=== PATIENT | female | born 1980 | race Caucasian/White ===

== ENCOUNTER 2022-04-13 20:54 | Inpatient (IN) | payer OTHER, SELFPAY ==
[2022-04-13] VITALS (17 sets, daily range): BP systolic 109–143; BP diastolic 67–92; PULSE 67–206; TEMP 37.1
[2022-04-13] MEDS: OXYTOCIN 30 UNITS/NS 500 ML 30 UNITS/500 ML BAG 999 UNITS IV CONT (21:50)
--- NOTE | 2022-04-13 22:01 | PM.IMHP ---
H&P: HPI History of Present Illness Date/Time: 04/13/22 22:01 Chief Complaint: delivered at home Narrative: Nadiya is a 41yo who delivered at home. She just found out she was a month ago, didn't realize she was in labor. Placenta still in upon my arrival. Has history of meth use. Denies drug use this but had no care. delivered her last baby a year ago with another practice, last saw Dr Rowley in 2019. Is avoidant with her history giving. Unclear who has custody of her three other minor children. her of a [place] one year ago. Review of Systems Review of Systems: All systems reviewed & are unremarkable except as noted in HPI and below Meds Home Medications and Allergies Allergies Allergy/AdvReac Type Severity Reaction Status Date / Time No Known Allergies Allergy Verified 11/11/18 14:18 Vital Signs Vital Signs - 24 hr 04/13/22 21:41 04/13/22 21:45 04/13/22 21:51 Pulse Rate 106 H 101 H 116 H Blood Pressure 111/67 132/84 109/78 04/13/22 21:56 Pulse Rate 71 Blood Pressure 128/77 Exam Const: General: no acute distress Resp: Effort & Inspection: normal respiratory effort Auscultation: clear to auscultation bilaterally Cardio: Rate: regular rate Rhythm: regular rhythm GI: GI Palp: Yes Soft to palpation Extrem: General: normal to inspection Assessment and Plan Assessment and plan (1) , delivered: Code(s): O80 - Encounter for full-term uncomplicated delivery Status: Acute Plan home delivery placenta out- path and culture UDS labs SW consult baby doing well stat CBC
--- NOTE | 2022-04-13 22:05 | P.PCNOB_ITS ---
OB - Delivery Note Procedure Delivery date: 04/13/22 Procedure: delivery of placenta Events: No Care and Other (delivery outside of hospital) Route of delivery: Laceration Description: None Specimen: Yes Quantitative Blood Loss (ml): 500 (since arrival at hospital) Anesthesia type: None Disposition: Floor Complications: retained placenta >30min by time I arrived, but delivered within 10 min with traction and pitocin [place] [facility] Date of : 04/13/22 Weeks of gestation at delivery: 38 (estimated based on baby.) Infant gender: Female Weight (pounds): 6 Weight (ounces): 3 presentation: vertex Placenta delivery description: Spontaneous Cord Vessel Description: 3 Vessels Narrative: Delivered out of the hospital. I arrived and placenta retained. With gentle traction and pitocin, it delivered intact. No lacerations. Uncertain of details of delivery of the baby.
[2022-04-13 22:17] LABS: Basophils Absolute Auto 0.1 K/mm3 (0.0-0.1); Basophils Percent Auto 0.5 % (0.2-1.2); Eosinophils Absolute Auto 0.1 K/mm3 (0-0.3); Eosinophils Percent Auto 0.4 % (0-4.4); Hematocrit 30.1 % (37.0-47.0); Hemoglobin 9.7 g/dL (12.0-15.0); Immature Granulocyte Absolute 0.13 K/mm3 (0.00-0.031); Lymphocytes Absolute Auto 2.01 K/mm3 (0.9-3.2); Lymphocytes Percent Auto 14.8 % (18.3-44.2); Mean Corpuscular HGB Conc 32.2 g/dl (32-36); Mean Corpuscular Hemoglobin 26.8 pg (26-34); Mean Corpuscular Volume 83.1 fl (80-100); Mean Platelet Volume 9.4 fl (7.4-10.4); Monocytes Absolute Auto 0.8 K/mm3 (0.1-0.6); Monocytes Percent Auto 5.8 % (2.6-8.5); Neutrophils Absolute Auto 10.5 K/mm3 (1.3-6.7); Neutrophils Percent Auto 77.5 % (45.5-73.1); Platelet Count Result 365 k/mm3 (150-375); Red Blood Count 3.62 M/mm3 (4.2-5.4); Red Cell Distribution Width 13.8 % (11.5-14.5); White Blood Count 13.6 K/mm3 (4.5-10.0)
[2022-04-13] MEDS: OXYTOCIN 30 UNITS/NS 500 ML 30 UNITS/500 ML BAG 125 UNITS IV CONT (22:28)
[2022-04-13 22:43] LABS: Benzodiazepines Screen Urine Positive (Negative)
[2022-04-13 22:50] LABS: Cannabinoid Screen Urine Negative (Negative); Cocaine Screen Urine Negative (Negative); Methadone Screen Urine Negative (Negative); Opiate Screen Urine Negative (Negative); Phencyclidine Screen Urine Negative (Negative)
[2022-04-13 23:01] LABS: HIV 1/2 Ab P24 Ag Result Negative (Negative)
[2022-04-13 23:31] LABS: Hepatitis B Surface Antigen Negative (Negative); Rubella IgG Antibody 21.9 IU/ML
[2022-04-14] VITALS (35 sets, daily range): BP systolic 106–138; BP diastolic 70–90; PULSE 71–136; RESP 16–18; TEMP 36.2–37.2; O2SAT 97–100
--- NOTE | 2022-04-14 00:22 | LDADM ---
This patient, Nadiya Grove, was admitted to Labor/Delivery/Recovery 104 on 04/13/22 at 20:54. Plans for labor, pain management and were discussed with patient. Patient/family oriented to hospital policies and general routines including ID bracelet, bed and alarms, visiting hours, pain management, procedures, bathroom and other care routines, personal items, smoking policy, room service/diet and guest tray routines, infant security routines, and visiting hours. Patient/Family are encouraged to report perceived risks to care and to ask questions if they do not understand what they are told or what they should do. See OBIX for further documentation.
[2022-04-14 00:48] LABS: Amphetamine Screen Urine Positive (Negative)
[2022-04-14] MEDS: IBUPROFEN 600 MG TABLET PO ×2 (01:02→10:59)
--- NOTE | 2022-04-14 04:13 | ADMGEN ---
This patient, Nadiya Grove, was admitted to OB 2nd Floor Room 289-00. Patient/family oriented to hospital policies and general routines including ID bracelet, bed and alarms, visiting hours, pain management, procedures, bathroom and other care routines, personal items, smoking policy, room service/diet, and visiting hours. Information on how to activate the Rapid Response Team has been discussed. Patient/Family are encouraged to report perceived risks to care and to ask questions if they do not understand what they are told or what they should do.
[2022-04-14 05:53] LABS: Hematocrit 22.5 % (37.0-47.0); Hemoglobin 7.2 g/dL (12.0-15.0)
--- NOTE | 2022-04-14 07:25 | PM.OBPNVD ---
OB - PN: Subj Subjective Date/time seen: 04/14/22 07:25 Patient comments: no complaints and pain well controlled baby status: doing well and bottle feeding well Narrative: just tired. Hgb 7, unsure where she started, was 9 immediately after delivery. Hasn't been up much yet. UDS was pos for benzos and amphetamines. OB - PN: Obj Data Labs CBC & Chem 7: 04/14/22 04:55 Labs: Laboratory Results - last 24 hr 04/13/22 04/13/22 04/13/22 22:05 22:05 22:05 WBC 13.6 H RBC 3.62 L Hgb 9.7 L Hct 30.1 L MCV 83.1 MCH 26.8 MCHC 32.2 RDW 13.8 Plt Count 365 MPV 9.4 Immature Gran % (Auto) 1.0 H Neut % (Auto) 77.5 H Lymph % (Auto) 14.8 L [place] % (Auto) 5.8 Eos % (Auto) 0.4 Baso % (Auto) 0.5 Lymph # (Auto) 2.01 [place] # (Auto) 0.8 H Eos # (Auto) 0.1 Baso # (Auto) 0.1 Abs Immat Gran (auto) 0.13 H Absolute Neuts (auto) 10.5 H Absolute Nucleated RBC 0.0 Nucleated RBC % 0.0 Urine Opiates Screen Urine Methadone Screen Ur Barbiturates Screen Ur Phencyclidine Scrn Ur Amphetamine Screen U Benzodiazepines Scrn Urine Cocaine Screen U Cannabinoids Screen Hep Bs Antigen Negative HIV 1&2 Ab/P24 Ag 4thGn Negative Rubella IgG Antibody 21.9 Blood Type Antibody Screen 04/13/22 04/13/22 04/14/22 22:05 22:05 04:55 WBC RBC Hgb 7.2 L Hct 22.5 L MCV MCH MCHC RDW Plt Count MPV Immature Gran % (Auto) Neut % (Auto) Lymph % (Auto) [place] % (Auto) Eos % (Auto) Baso % (Auto) Lymph # (Auto) [place] # (Auto) Eos # (Auto) Baso # (Auto) Abs Immat Gran (auto) Absolute Neuts (auto) Absolute Nucleated RBC Nucleated RBC % Urine Opiates Screen Negative Urine Methadone Screen Negative Ur Barbiturates Screen Ur Phencyclidine Scrn Negative Ur Amphetamine Screen Positive A U Benzodiazepines Scrn Positive A Urine Cocaine Screen Negative U Cannabinoids Screen Negative Hep Bs Antigen HIV 1&2 Ab/P24 Ag 4thGn Rubella IgG Antibody Blood Type O Positive Antibody Screen Negative OB - PN A/P Plan day: 1 Plan: routine care Comments: SW to see today IV iron, may need transfusion, discussed RBA blood transfusion. will see how sx are today. Time Spent With Patient Time: Total time spent is greater than 50% in coordination of care (as documented) at patient's floor/unit and/or counseling patient: Time with patient: less than 15 minutes Exam Narrative: NAD abdomen soft, nontender, fundus firm below the umbilicus Extremities nontender, 1+ edema
[2022-04-14] MEDS: POLYSACCHARIDE IRON COMPLEX 150 MG CAPSULE PO ×2 (10:59→15:51)
[2022-04-14 15:31] LABS: Rapid Plasma Reagin Non-Reactive (NonReactive)
--- NOTE | 2022-04-14 16:04 | PCCCNOTE ---
Addendum entered by HENRY Palmer 04/16/22 13:21: Baby Girl Jennifer is ready for discharge per RN. Call to DCFS worker Arelis to inform of discharge. Per Arelis she will be at the hospital this afternoon at 1pm with the foster parents. She will bring a car seat. RN aware that foster parents are requesting not to see mom, they will complete paperwork on the first floor. Arelis requests umbilical cord results to be faxed once available to her fax number listed below. Addendum entered by HENRY Palmer 04/15/22 09:17: Received call from Arelis with [employer] out of the [place] DCFS office. , . Arelis will be here at the hospital to meet with pt. this morning. Per Arelis pt. recently has had her parental rights severed as to her 5 year old and 1 year old for substance abuse. Arelis reports that DCFS will be taking custody of baby girl and Arelis is working on finding placement for child this morning. RN notified. Original Note: Care Coordination Consult: Met with pt. today. This is her fifth child. She has three other children under the age of 18. One child over the age of 18. Pt. reports she was not aware that she was until about one month ago, did not seek any care. Was not aware that she was in labor prior to admission, reason as to why she gave at home. Pt. states that she has some belongings at home for baby girl from her previous children, her mother Katherine is her biggest support and is working on a car seat and other bigger items for pt. and baby to use at home. Pt. reports she lives at home alone. Her children mostly live with their fathers. Pt. now aware she tested positive for Benzodiazepines and Amphetamines upon admission to the hospital, baby tested positive for Benzodiazepines. When asked mother reports she takes Xanax and can confirm prescription. Pt. confirms she has used Methamphetamines during this , last used a couple of days ago. Pt. reports she has used Metamphetamines off and off for a while. Pt. denies any other substance use. When asked pt. has had a history of DCFS in the past, denies a current open case. Provided and substance abuse resources. Pt. reports she has sough treatment through [facility] in [place], [place] before and felt she benefited from their outpatient services before. Pt. aware that DCFS will be contacted to determine if they will come speak with pt. A basket was provided to assist pt. in supplies for home. Completed online DCFS report #[id number], received confirmation that DCFS will take a report and will come to speak with mother regarding the issues above.
[2022-04-15 07:55] VITALS: BP 113/70; PULSE 95; RESP 16; TEMP 37.1; O2SAT 99
--- NOTE | 2022-04-15 08:32 | PM.OBPNVD ---
OB - PN: Subj Subjective Date/time seen: 04/15/22 08:32 Patient comments: no complaints, pain well controlled and tolerating diet OB - PN: Obj Data Labs CBC & Chem 7: 04/14/22 04:55 Labs: Laboratory Results - last 24 hr 04/13/22 22:05 RPR Non-reactive OB - PN A/P Plan day: 2 Plan: routine care Comments: continue observation for severe anemia Time Spent With Patient Time: Total time spent is greater than 50% in coordination of care (as documented) at patient's floor/unit and/or counseling patient: Exam Const: General: comfortable and no acute distress Resp: Effort & Inspection: normal respiratory effort Auscultation: no rales, no rhonchi and no wheezes Cardio: Rate: regular rate Heart sounds: no click, no murmurs and no rubs GI: GI Palp: Yes Soft to palpation and No Tenderness to palpation present (GI) Auscultation: normal bowel sounds Extrem: General: normal to inspection, no pedal edema and no calf tenderness
--- NOTE | 2022-04-15 10:30 | PC.NURSE ---
Mely from DCFS here to see pt.
[2022-04-15] MEDS: POLYSACCHARIDE IRON COMPLEX 150 MG CAPSULE PO ×2 (13:03→16:59)
[2022-04-15] MEDS: DOCUSATE SODIUM 100 MG CAPSULE PO ×2 (13:03→16:59)
[2022-04-15] MEDS: IBUPROFEN 600 MG TABLET PO (16:59)
[2022-04-15 19:51] VITALS: BP 113/71; PULSE 125; RESP 18; TEMP 37.1
[2022-04-16] VITALS (8 sets, daily range): BP systolic 105–128; BP diastolic 65–83; PULSE 104–113; RESP 16–22; TEMP 36.7–37.3; O2SAT 97–100
[2022-04-16 06:23] LABS: Basophils Absolute Auto 0.1 K/mm3 (0.0-0.1); Basophils Percent Auto 0.6 % (0.2-1.2); Eosinophils Absolute Auto 0.1 K/mm3 (0-0.3); Immature Granulocyte Absolute 0.41 K/mm3 (0.00-0.031); Immature Granulocyte Percent A 3.6 % (0-0.5); Lymphocytes Absolute Auto 3.31 K/mm3 (0.9-3.2); Lymphocytes Percent Auto 28.8 % (18.3-44.2); Mean Corpuscular HGB Conc 32.3 g/dl (32-36); Mean Corpuscular Hemoglobin 26.9 pg (26-34); Mean Corpuscular Volume 83.4 fl (80-100); Mean Platelet Volume 9.4 fl (7.4-10.4); Monocytes Absolute Auto 0.7 K/mm3 (0.1-0.6); Monocytes Percent Auto 6.4 % (2.6-8.5); Neutrophils Absolute Auto 6.9 K/mm3 (1.3-6.7); Neutrophils Percent Auto 59.6 % (45.5-73.1); Nucleated Red Blood Cells Absolute Auto 0.1 K/mm3 (0.0-0.012); Nucleated Red Blood Cells Perc 0.4 % (0.0-0.2); Platelet Count Result 326 k/mm3 (150-375); Red Blood Count 2.23 M/mm3 (4.2-5.4); Red Cell Distribution Width 14.2 % (11.5-14.5); White Blood Count 11.5 K/mm3 (4.5-10.0)
[2022-04-16 06:36] LABS: Hematocrit 18.6 % (37.0-47.0)
--- NOTE | 2022-04-16 08:02 | PM.OBPNVD ---
OB - PN: Subj Subjective Date/time seen: 04/16/22 08:02 Patient comments: pain well controlled Narrative: exhausted. Hgb 6.0. Denies sx other than fatigue. Baby to be taken into custody. OB - PN: Obj Data Labs CBC & Chem 7: 04/16/22 04:58 Labs: Laboratory Results - last 24 hr 04/13/22 04/16/22 22:05 04:58 WBC 11.5 H RBC 2.23 L Hgb 6.0 L* Hct 18.6 L* MCV 83.4 MCH 26.9 MCHC 32.3 RDW 14.2 Plt Count 326 MPV 9.4 Immature Gran % (Auto) 3.6 H Neut % (Auto) 59.6 Lymph % (Auto) 28.8 [place] % (Auto) 6.4 Eos % (Auto) 1.0 Baso % (Auto) 0.6 Lymph # (Auto) 3.31 H [place] # (Auto) 0.7 H Eos # (Auto) 0.1 Baso # (Auto) 0.1 Abs Immat Gran (auto) 0.41 H Absolute Neuts (auto) 6.9 H Absolute Nucleated RBC 0.1 H Nucleated RBC % 0.4 H Blood Type O Positive Antibody Screen Negative Crossmatch See Detail OB - PN A/P Plan day: 3 Plan: routine care Comments: 2 units pRBCs possible DC after blood encouraged PP follow up for BC especially. Time Spent With Patient Time: Total time spent is greater than 50% in coordination of care (as documented) at patient's floor/unit and/or counseling patient: Time with patient: less than 15 minutes Exam Narrative: NAD abdomen soft, nontender, fundus firm below the umbilicus Extremities nontender, 1+ edema
[2022-04-16] MEDS: POLYSACCHARIDE IRON COMPLEX 150 MG CAPSULE PO (08:43)
[2022-04-16 16:51] LABS: Hemoglobin 8.4 g/dL (12.0-15.0)
[2022-04-19 09:55] VITALS: BP 139/83; PULSE 115; RESP 20; TEMP 36.7; O2SAT 99
--- NOTE | 2022-05-09 12:43 | P.DS_ITS ---
DS: Admitting Diagnosis Discharge Date 04/16/22 Admitting Diagnosis term OB - DS: Summary OB Procedures : None OB Procedures Intrapartum: Spontaneous Vag Delivery OB Procedures: : None Time Spent with Patient Time attestation: Total time spent providing and/or coordinating discharge services: DS: Data Data Completed and Pending Completed studies during hospitalization: Pending at discharge 04/13/22 21:50 Surgical [PTH] Routine Discharge Plan Discharge Discharging Clinician: Aurea Rowley Anticipated Discharge Date/Time: 04/16/22 17:32 Patient Disposition: Home, Self-Care Activity: may shower, may drive after 2 weeks, pelvic rest and other - see discharge instructions Diet: regular Discharge Instructions: Education: Mom and Baby Guide Given to: Mother Follow-Up: Call your delivering provider's office for an appointment to be seen in: 4 Weeks [facility]. Appointment Date/Time: April 19, 2022 at 10:00 am Call [phone] if you are unable to keep your appointment time. BREAST CARE: * Wear a snug supportive bra. * Bottle Feeding: * May apply ice packs PERINEAL CARE: * Until bleeding stops, use your kris bottle after urinating * Change your pad frequently throughout the day * You may take sitz baths several times a day (fill your bathtub with warm water and soak for 20 minutes.) Do NOT bathe in the water * No tub baths until seen by your physician - You may shower ACTIVITY: * Rest as much as possible. * Do not exercise or lift anything heavier than 10 pounds. * Avoid stairs or driving as much as possible. * Do not put anything into the vagina. No douching, tampons, or sexual activity until seen by physician. NOTIFY PHYSICIAN IF YOU HAVE ANY QUESTIONS OR IF ANY OF THE FOLLOWING SYMPTOMS OCCUR: * If your perineum becomes red, swollen, or more painful than what you have experienced in the hospital. * If your vaginal bleeding becomes foul smelling. * If your vaginal bleeding becomes more heavy than a period or if your bleeding changes from pink to bright red. However, you may pass an occasional walnut- sized clot once or twice for the first week . * If you experience a sharp, shooting pain in you calves. * If you discover a hard, reddened area on your breast or if you experience flu- like symptoms. DIET: * Eat regular, well-balanced meals. * Drink plenty of fluids daily. If , drink to thirst. Patient Instructions: Antibiotic Form Stand Alone Forms: General Discharge Information Follow-up/Referrals: Aurea Rowley MD [Physician] - Discharge Medications: New polysaccharide iron complex 150 mg iron Capsule 150 mg PO BIDWM Qty: 60 1RF Date of admission: 04/13/22 20:54 Primary Care Provider: PHYSICIAN,TOP CUTTER Admitting Provider: Rama Carrera Attending physician on admission: Aurea Rowley Condition: Stable
== END 2022-04-16 17:45 | disposition home or self-care (01) | DRG 560 ==
LOC: ANHLDR 22:41 → ANHOB2 04-14 03:27
PROVIDERS: Admitting Provider Obstetrics & Gynecology; Visit Provider Obstetrics & Gynecology
DX: O73.0 Retained placenta without hemorrhage (principal); F13.20 Sedative, hypnotic or anxiolytic dependence, uncomplicated; O99.325 Drug use complicating the puerperium; F19.90 Other psychoactive substance use, unspecified, uncomplicated; F15.10 Other stimulant abuse, uncomplicated
CPT/HCPCS: 36415; 36430; 80307; 85014; 85018; 85025; 86592; 86703; 86762; 86850; 86900; 86901; 86923; 87070; 87075; 87205; 87340; 88307; A9270; G0432; J1756; J2590; J7050; P9016